=== PATIENT | female | born 1940 | race Caucasian/White ===

== ENCOUNTER 2018-12-24 13:01 | Emergency (ER) | payer MEDICARE ==
[~2018-12-24] VITALS: Ht 162.6 cm; Wt 71.8 kg
[2018-12-24 13:46] LABS: HEMATOCRIT 42.1 % (37.0-47.0); HEMOGLOBIN 14.1 g/dl (12.0-16.0); IMMATURE GRANULOCYTES 0.3 % (0.0-5.0); MEAN CELL VOLUME 89.2 fL CALC (80.0-100.0); MEAN CORPUSCULAR HGB 29.9 pG CALC (26.0-32.0); MEAN CORPUSCULAR HGB CONC 33.5 g/L CALC (32.0-36.0); NEUT# 8.28 thou/uL (2.00-7.15); RED BLOOD COUNT 4.72 mill/uL (4.20-5.60); RED CELL DISTRI WIDTH 12.9 % (11.5-15.5)
[2018-12-24 14:08] LABS: CREATININE 1.1 mg/dL (0.5-1.0); POTASSIUM 3.6 mmol/l (3.5-5.1)
[2018-12-24] MEDS ORDERED: PREDNISONE50 MG PO (15:07)
[2018-12-24] MEDS ORDERED: EPIPEN 2-P0.3 MG/0.3 IM (15:07)
[2018-12-24 17:39] VITALS: BP 116/71
== END 2018-12-24 17:46 | disposition home or self-care (01) ==
LOC: ED 13:01
PROVIDERS: Family Medicine
DX: T78.2XXA Anaphylactic shock, unspecified, initial encounter (principal)

== ENCOUNTER 2018-12-27 14:23 | Emergency (ER) | payer MEDICARE ==
[~2018-12-27] VITALS: Ht 162.6 cm; Wt 70.0 kg
[~2018-12-27 14:23] MED LIST: EPIPEN 2-P0.3 MG/0.3 IM; PREDNISONE50 MG PO
[2018-12-27 18:13] VITALS: BP 153/65
== END 2018-12-27 18:18 | disposition home or self-care (01) ==
LOC: ED 14:23
DX: L50.0 Allergic urticaria (principal); R22.0 Localized swelling, mass and lump, head

== ENCOUNTER 2019-01-08 13:37 | Emergency (ER) | payer MEDICARE ==
[~2019-01-08] VITALS: Ht 162.6 cm; Wt 71.0 kg
[2019-01-08] MEDS ORDERED: BENADRYL 50MG C50 MG PO (14:52)
[2019-01-08] MEDS ORDERED: MEDDOSEPAK PO (14:52)
[2019-01-08] MEDS ORDERED: PEPCID20 MG PO (14:52)
[2019-01-08 15:00] VITALS: BP 138/72
== END 2019-01-08 15:00 | disposition home or self-care (01) ==
LOC: ED 13:37
DX: T78.40XA Allergy, unspecified, initial encounter (principal); L50.0 Allergic urticaria

== ENCOUNTER 2019-01-27 14:53 | Emergency (ER) | payer MEDICARE ==
[~2019-01-27] VITALS: Ht 162.6 cm; Wt 60.0 kg
[~2019-01-27 14:53] MED LIST changes: +BENADRYL 50MG C50 MG PO; +MEDDOSEPAK PO; +PEPCID20 MG PO
[2019-01-27] MEDS ORDERED: PEPCID20 MG PO (15:35)
[2019-01-27] MEDS ORDERED: BENADRYL 50MG C50 MG PO (15:35)
[2019-01-27] MEDS ORDERED: MEDDOSEPAK PO (15:35)
[2019-01-27 16:43] VITALS: BP 114/68
== END 2019-01-27 17:02 | disposition home or self-care (01) ==
LOC: ED 14:53
DX: L50.0 Allergic urticaria (principal); E11.9 Type 2 diabetes mellitus without complications; I10 Essential (primary) hypertension